=== PATIENT | female | born 2000 | race Caucasian/White ===

== ENCOUNTER 2023-10-14 18:28 | Emergency (ER) | payer MEDICAID ==
[~2023-10-14] VITALS: Ht 170.2 cm; Wt 100.0 kg
[2023-10-14 18:40] VITALS: BP 127/84; PULSE 91; RESP 16; TEMP 97.8; O2SAT 99
[2023-10-14 20:29] LABS: BILIRUBIN,URINE NEGATIVE (Neg); CLARITY,URINE SLIGHTLY CLOUDY (Clear); COLOR,URINE YELLOW (Yellow); GLUCOSE, URINE NEGATIVE (Neg); KETONES,URINE NEGATIVE (Neg); LEUKOCYTE ESTERASE ,URINE NEGATIVE (Neg); NITRITES, URINE NEGATIVE (Neg); OCCULT BLOOD,URINE NEGATIVE (Neg); PROTEIN,URINE NEGATIVE (Neg); URINE HCG NEGATIVE (NEG); UROBILINOGEN,URINE 0.2 E.U/dL (0.2-1.0)
[2023-10-14 20:30] LABS: BASOPHILS # (AUTO) 0.1 X10'3 (0-0.2); BASOPHILS % (AUTO) 0.7 % (0-1); EOSINOPHILS # (AUTO) 0.1 X10'3 (0-0.9); HEMATOCRIT 43.1 % (35.0-45.0); HEMOGLOBIN 14.5 g/dl (12.0-16.0); LYMPHOCYTES % (AUTO) 30.8 % (21-51); MEAN CORPUSCULAR HEMOGLOBIN 28.3 PG (27.0-31.0); MEAN CORPUSCULAR HGB CONC 33.6 g/dL (33.0-36.5); MEAN CORPUSCULAR VOLUME 84.3 FL (78-98); MEAN PLATELET VOLUME 7.1 FL (7.4-10.4); MONOCYTES # (AUTO) 0.7 X10'3 (0-0.9); NEUTROPHILS # (AUTO) 5.9 X10'3 (1.8-7.7); NEUTROPHILS % (AUTO) 60.5 % (42-75); PLATELET COUNT 384 X10'3 (140-440); RED BLOOD COUNT 5.12 X10'6 (4.20-5.60); RED CELL DISTRIBUTION WIDTH 13.5 % (11.5-14.5); WHITE BLOOD COUNT 9.7 X10'3 (4.5-11.0)
[2023-10-14 20:33] LABS: UA COLLECTION TYPE CLN CATCH MIDSTREAM
[2023-10-14 20:41] LABS: RBC,URINE 0-2 /HPF (0-2); WBC,URINE 0-4 /HPF (0-4)
[2023-10-14 20:42] LABS: MUCUS STRANDS FEW /LPF (Neg); SQUAMOUS EPITHELIAL CELL,UR MODERATE /LPF (FEW); TRANSITIONAL EPI CELLS,URINE FEW /HPF
[2023-10-14] MEDS ORDERED: MECL-302 PO (20:46)
[2023-10-14 20:47] LABS: ALANINE AMINOTRANSFERASE 22 U/L (12-78); ALBUMIN 4.3 G/DL (3.4-5.0); ALBUMIN/GLOBULIN RATIO 1.2 (1.1-1.5); ALKALINE PHOSPHATASE 116 IU/L (20-180); ANION GAP 7 (8-16); ASPARTATE AMINO TRANSFERASE 10 U/L (10-37); BILIRUBIN,TOTAL 0.6 MG/DL (0.1-1.0); BLOOD UREA NITROGEN 9 MG/DL (7-18); BUN/CREATININE RATIO 13.4 (10.0-20.0); CALCIUM 9.1 MG/DL (8.5-10.1); CHLORIDE 103 MMOL/L (99-107); CREATININE 0.67 MG/DL (0.40-0.90); GLUCOSE 92 MG/DL (70-104); POTASSIUM 3.9 MMOL/L (3.5-5.1); SODIUM 138 MMOL/L (135-145); TOTAL CARBON DIOXIDE 27.6 MMOL/L (24-32); eCRCL 130 ML/MIN; eGFR > 90 ML/MIN
[2023-10-14 20:51] LABS: AMORPHOUS PHOSPHATES 1+; BACTERIA,URINE FEW /HPF (Neg)
== END 2023-10-14 21:07 | disposition home or self-care (01) ==
LOC: ER 18:30
DX: R42 Dizziness and giddiness (principal)
CPT/HCPCS: 36415; 80053; 81001; 81025; 85025; 99283

== ENCOUNTER 2025-05-08 01:03 | Emergency (ER) | payer MEDICAID ==
[~2025-05-08] VITALS: Ht 170.2 cm; Wt 111.4 kg
[~2025-05-08 01:03] MED LIST: MECL-302 PO
[2025-05-08 01:07] VITALS: BP 126/81; PULSE 86; TEMP 97.7; O2SAT 99
[2025-05-08 01:32] LABS: LEUKOCYTE ESTERASE ,URINE NEGATIVE (Neg); NITRITES, URINE NEGATIVE (Neg); OCCULT BLOOD,URINE TRACE-INTACT (Neg)
[2025-05-08 01:33] LABS: UA COLLECTION TYPE CLN CATCH MIDSTREAM
[2025-05-08 01:35] VITALS: RESP 15
[2025-05-08 01:56] LABS: HCG SERUM QL NEGATIVE; MEAN PLATELET VOLUME 7.0 FL (7.4-10.4); RED CELL DISTRIBUTION WIDTH 13.3 % (11.5-14.5)
[2025-05-08 01:59] LABS: APTT 30 SECONDS (22-32); INR 1.0 INR
--- NOTE | 2025-05-08 01:59 | Physician Documentation ---
History of Present Illness General Chief Complaint: Vaginal Bleeding Stated Complaint: VAGINAL BLEEDING Time Seen by MD: 01:19 Mode of Arrival: POV History of Present Illness Initial Comments This is a 24-year-old female with no significant past medical history who presents for evaluation of three weeks of consistent vaginal bleeding similar to menses. She states that this bleeding began without any obvious trigger, trauma provocation. She actually had her period a week prior. This never happened in the past, she does not have history of irregular menstrual bleeding. No palliating or aggravating factors. She has been evaluated at [facility] four days ago, she has a received blood work and ultrasound, and was discharged after being told that everything was okay. She reports crampy abdominal pain in her lower abdomen as well as feeling dizzy. She essentially is here for a 2nd opinion. She does have OBGYN and sees Dr. Murphy at [facility]. She has not scheduled follow-up with a her OBGYN. Denies chest pain or difficulty breathing. She uses patch breast controlled at has been in place for three months. She denies any concerns for tobacco, alcohol or illicit substances use Medication Reconciliation Allergies: Coded Allergies: No Known Allergies (Unverified , 05/08/25) Scheduled Meclizine HCl (Meclizine HCl), 1 TAB PO TID PRN Review of Systems ROS 10 point review of systems was performed and unless noted above in HPI is negative for acute process/complaint. Physical Exam Physical Exam Vital Signs: Temperature: 97.7, Source: Temporal, Heart Rate: 86, Respiratory Rate: 15, BP: 126/81, Pulse Oximetry: 99, Weight: 111.400 Physical Exam GENERAL: Awake, alert, oriented, GCS 15, no apparent distress, pale appearing, answers questions, follows commands appropriately. Examined in bed 15. Accompanied by significant other HEENT: Atraumatic, normocephalic, pupils equal, extraocular muscles intact, sclerae anicteric, mucus membranes moist, oropharynx is clear, no stridor. NECK: supple, full active range of motion, trachea midline, no thyromegaly, no lymphadenopathy, no JVD. CARDIOVASCULAR: regular rate/rhythm, no murmurs/gallops/rubs, Pulses are 2+ in all extremities and symmetric. Capillary refill less than 2 seconds. PULMONARY: Nonlabored, good air movement ,no respiratory distress, speaking in full sentences, clear to auscultation bilaterally, no wheezing, no ronchi, no rales, no accessory muscle use. GASTROINTESTINAL: Soft, non-tender, non-distended, normal active bowel sounds, no organomegaly, no pulsatile masses, no CVA tenderness. NEUROLOGIC: Lucid with normal mental status. Normal facial symmetry. Moves all extremities symmetrically and with purpose. No truncal ataxia. Speech is fluid without evidence of dysarthria or aphasia, no focal deficits appreciated. MUSCULOSKELETAL: There is full range of motion of all extremities. There is no joint pain or joint swelling or joint erythema. There is no muscle pain or ten derness or swelling. EXTREMITIES: warm, well-perfused, no cyanosis, no clubbing, no edema, no acute deformities. Skin: warm, dry, no rashes or lesions, no jaundice, no petechiae orpurpura. No ecchymosis. PSYCHIATRIC: Normal affect, normal insight, normal concentration. Focused exam: [] Progress Results/Orders Results/Orders Orders - OSKAR SOMMER DO Ct Abdomen Pelvis (05/08/25 01:19) Estradiol (05/08/25 01:57) Progesterone (05/08/25 01:57) Fsh, Serum (05/08/25 01:57) Luteinizing Hormone (05/08/25 01:57) Drug Screen, Urine (05/08/25 02:22) Completed Orders - OSKAR SOMMER DO Cbc/Diff (05/08/25 01:19) ESR (05/08/25 01:19) Lipase (05/08/25 01:19) C-Reactive Protein (05/08/25 01:19) Pt Inr (05/08/25 01:19) PTT (05/08/25 01:19) MG (05/08/25 01:19) Hcg Serum Ql (05/08/25 01:19) Ct Abdomen Pelvis (05/08/25 01:19) CMP (05/08/25 01:19) Ua W/Microscopic, Cult If Ind (05/08/25 01:25) Vital Signs 05/08/25 05/08/25 01:07 01:35 Temp 97.7 Pulse 86 Resp 16 15 B/P (MAP) 126/81 Pulse Ox 99 Laboratory Tests Test 05/08/25 01:25 05/08/25 01:37 05/08/25 02:53 Urine Specimen Description Cln catch midstream Urine Color Yellow Urine Clarity Clear Urine pH 8.0 Urine Specific [place] 1.015 Urine Protein Negative Urine Glucose (UA) Negative Urine Ketones Negative Urine Occult Blood Trace-intact Urine Nitrite Negative Urine Bilirubin Negative Urine Urobilinogen 0.2 Urine Leukocyte Esterase Negative Urine RBC 3-10 Urine WBC None seen Urine Squamous Epithelial Cells Few Urine Bacteria Few Urine Culture Indicated Not ind Volume Urine Centrifuged 10 ml Urine Comment White Blood Count 12.2 H Red Blood Count 4.48 Hemoglobin 12.3 Hematocrit 36.8 Mean Corpuscular Volume 82.0 Mean Corpuscular Hemoglobin 27.5 Mean Corpuscular Hemoglobin Concent 33.5 Red Cell Distribution Width 13.3 Platelet Count 367 Mean Platelet Volume 7.0 L Neutrophils (%) (Auto) 68.1 Lymphocytes (%) (Auto) 23.9 Monocytes (%) (Auto) 6.4 Eosinophils (%) (Auto) 1.1 Basophils (%) (Auto) 0.5 Neutrophils # (Auto) 8.3 H Lymphocytes # (Auto) 2.9 Monocytes # (Auto) 0.8 Eosinophils # (Auto) 0.1 Basophils # (Auto) 0.1 CBC Comment Erythrocyte Sedimentation Rate 10 Prothrombin Time 9.8 INR International Normalized Ratio 1.0 Activated Partial Thromboplast Time 30 Coagulation Comments Sodium Level 139 Potassium Level 3.5 Chloride Level 104 Carbon Dioxide Level 26.6 Anion Gap 8 Blood Urea Nitrogen 9 Creatinine 0.65 Estimated GFR/1.73 m2 > 90 BUN/Creatinine Ratio 13.8 Glucose Level 112 H Calcium Level 8.8 Magnesium Level 1.9 Total Bilirubin 0.3 Aspartate Amino Transf (AST/SGOT) 10 Alanine Aminotransferase (ALT/SGPT) 14 Alkaline Phosphatase 82 C-Reactive Protein 0.79 H Total Protein 7.5 Albumin 3.7 Globulin 3.8 Albumin/Globulin Ratio 1.0 L Lipase 47 Human Chorionic Gonadotropin, Qual Negative Chemistry Comments EKG/XRAY/CT/US/VASC/MRI CT : Impression [facility] [address] [facility], [facility] [id number] CAT SCAN Patient: GRICELDA JENNINGS Medical Record: [id number] [facility] : 2000, Age: 24 Sex: Female Location: ER Patient Status: [facility] ER Service Date/Time: 05/08/25118 Ordering Physician: OSKAR SOMMER DO Exam: CT ABDOMEN PELVIS Exam: CT CT ABDOMEN PELVIS W/ IV CONTRAST History: Lower abdominal pain COMPARISON: None Technique: Multidetector spiral CT of the abdomen and pelvis was performed from lung bases to pubic symphysis. Intravenous contrast was administered during this examination. Portal venous imaging was obtained. Axial, coronal and sagittal multiplanar reformats were performed by the technologist on a separate workstation. Radiation Dose : 1. Abdomen/Pelvis: CTDIvol 33.6 mGy, DLP 1790.75 mGy*cm. CONTRAST: Type of contrast: Omnipaque 350 Contrast injected: 100 ml Findings: Lung Bases: No acute or significant lung base finding. Normal heart size. No pleural or pericardial effusion. Liver: The liver is normal in size. No focal lesions. Normal hepatic vascular enhancement. Gallbladder and Biliary Tree: Unremarkable Spleen: Unremarkable Pancreas: The pancreas is normal in appearance without focal lesions or abnormal enhancement. Adrenal Glands: Unremarkable Kidneys: No hydronephrosis. Bladder: Unremarkable Bowel: The stomach is grossly normal in appearance. Small bowel and colon are normal in caliber and distribution. Normal appendix is visualized in the right lower quadrant without findings of appendicitis. Ascites: Absent Lymphadenopathy: No mesenteric, retroperitoneal or periportal lymphadenopathy. Abdominal Wall and Mesentery: Unremarkable. Vasculature: The visualized abdominal aorta is normal in size and caliber. Abdominal and pelvic vessels demonstrate normal enhancement. Pelvic Organs: Unremarkable Musculoskeletal: No aggressive focal bony lesions, acute fractures or dislocation. IMPRESSION: No acute abdominal or pelvic finding. Radiation optimization: All CT scans at this facility use at least one of these dose optimization techniques: automated exposure control mA and/or kV adjustment per patient size (includes targeted exams where dose is matched to clinical indication) or iterative reconstruction. Electronically Signed by:VASYL MONTANEZ MD Date & Time: 05/08/25256 Dictated by: VASYL MONTANEZ MD Dictation date and time: 05/08/25256 Primary Care Provider: NO PRIMARY CARE PROVIDER cc: OSKAR SOMMER DO ~ Medical Decision Making Additional information obtaine: old records, family Findings Facility Status: ED Holds, RME process The plan was discussed with the patient, who demonstrates clear understanding of the plan and is in agreement with the plan unless otherwise noted in the chart. All questions have been answered, all concerns were addressed unless otherwise documented. I was available throughout their ED stay for frequent reassessment and questions. Differential Diagnoses (considered and possible or likely): [Dysfunctional vaginal bleeding, less likely miscarriage, less likely ectopic . Hormonal dysregulation had also been considered. Unlikely to be urine neoplasm.] ??Differential Diagnoses (considered and unlikely, not requiring evaluation currently): [No evidence of trauma] MDM Data Please see [facility] for the following: Independent Historians and external Records Review. Historian: [Patient] Independent Historians: ?[Record review] Medication Management: [Reviewed medication list] Social History and determinants: [Reviewed] Please see the body of the note for the following: Any independent interpretations of ECG, imaging studies. All vitals signs/haemodynamics, ordered tests were independently reviewed and interpreted by myself. Nursing triage complaint and vitals reviewed, additional nursing notes were re viewed as available and I agree unless otherwise noted or documented in contradiction in the chart Vital Signs: Independently reviewed Labs: Independently interpreted Imaging: Independently interpreted Old Medical Records: Independently reviewed, see [facility] for relevant summary and information Pulse Oximetry: [99%] interpreted as [normal on room air] by me [Loan Inspector: [Regular Rate, Regular rhythm, no ectopy, NSR] reviewed and interpreted by me] Additionally notably showing: [Hemodynamics reviewed. Young lady is not febrile, not tachycardic, no evidence of hypotension, no evidence of narrow pulse pressure. No evidence of respiratory distress. CBC shows minimal leukocytosis, most likely reactive. 12.2. Hemoglobin is normal, not requiring transfusion. Platelets are also normal. Only 68% neutrophils. ESR is normal. Coagulation panel is unremarkable, no evidence of coagulopathy. Chemistry shows normal electrolytes, normal renal function. Glucose elevated in the dietary arrange. CRP is slightly elevated. Lipase is normal. She is not . UA is nondiagnostic for UTI. Estradiol, FSH, LH, progesterone a pending inpatient was informed that she needs an outpatient follow-up to obtain records and get this data points to present to her OBGYN. Advanced imaging was obtained showing no acute intra-abdominal process.] Tests considered but not ordered include: [Ultrasound has been considerably, however it already has been done four days ago at [facility]. I was able to see the results showing normal ovaries with a bilateral blood flow, normal uterus without masses, endometrial stripe of 3 mm.] Social Determinants of Health Impact: Patient was evaluated in [facility] [place] to healthcare due to below par ratio of patient to medical providers. [] Comorbid Conditions Impacting Present Evaluation and Care/Treatment: [None] Management Discussions with other Healthcare Providers: [None] Treatment and Disposition Medication Management (Given or considered): []. See EMR for details Consideration for Hospitalization/Escalation/Deescalation of Care: Admission for observation has been considered, [however the patient is able to tolerate p.o., their symptoms are controlled, they are able to rely on oral medications, and their chief complaint/diagnosis can be managed on outpatient basis.] ?ED Course:?[No clinical deterioration. No anemia requiring transfusion.] ?Shared decision making:?[Patient is hemodynamically stable for discharge home with follow with their primary care provider. [ ] Specific and cautious return precautions provided and discussed with full understanding. Any incidental findings were also discussed and follow up recommendations given. [] All questions answered. Patient/family were able to verbalize back return precautions. Patient/family agree to plan. Copies of imaging and laboratory studies were provided.] Code status:?FULL Please see the full Electronic Medical Record for full details of nursing documentation, medications list, other records of complete past medical history and conditions, vital signs, laboratory studies, and any radiologic study interp retations by radiologists. Portions of this note were completed using [employer] dictation software and as a result there may exist minor errors in spelling. I have reviewed elements of past family and social history and agree as included in note. Differential Diagnosis See body of main note for differential diagnosis Departure Disposition: HOME / SELF CARE / HOMELESS Impression: Primary Impression: Dysfunctional uterine bleeding Condition: Stable Discharge Instructions: Dysfunctional Uterine Bleeding Additional Instructions: Today you were evaluated for three weeks of dysfunctional uterine bleeding. You already had an ultrasound done at [facility], therefore we did not repeated. The ultrasound was normal, shallow with a normal size and normal blood flow to the ovaries, no ovarian cyst, normal uterus without masses. Labo ratory studies today were repeated and there is no evidence of anemia requiring transfusion. This is a matter of fact, your hemoglobin is within normal range. The rest of your laboratory studies were unremarkable. There is no evidence of urinary tract infection. There is no obvious explanation to your lower abdominal/pelvic cramping, but it is most likely related to the dysfunctional uterine bleeding. The CT showed no acute intra-abdominal process, no tumors, no chronic pathology. Hormonal studies were obtained, however they are a send out laboratory studies. It takes a proximally three business days for them to result. Please contact records department or go on the portal to view the results for estrogen, progesterone, follicle-stimulating hormone, and luteinizing hormone. Discuss the results for these labs with the your OBGYN provider. They will need to know the timing of these labs with a respect to the 1st day of your last menstrual period. Most likely you will be able to obtain this information from your period tracker jayesh. The results of your CT scan below. [place] [address] CAT SCAN Patient: GRICELDA JENNINGS Medical Record: [id number] [facility] : 2000, Age: 24 Sex: Female Location: ER Patient Status: REG ER Service Date/Time: 05/08/25118 Ordering Physician: OSKAR SOMMER DO Exam: CT ABDOMEN PELVIS Exam: CT CT ABDOMEN PELVIS W/ IV CONTRAST History: Lower abdominal pain COMPARISON: None Technique: Multidetector spiral CT of the abdomen and pelvis was performed from lung bases to pubic symphysis. Intravenous contrast was administered during this examination. Portal venous imaging was obtained. Axial, coronal and sagittal multiplanar reformats were performed by the technologist on a separate workstation. Radiation Dose : 1. Abdomen/Pelvis: CTDIvol 33.6 mGy, DLP 1790.75 mGy*cm. CONTRAST: Type of contrast: Omnipaque 350 Contrast injected: 100 ml Findings: Lung Bases: No acute or significant lung base finding. Normal heart size. No pleural or pericardial effusion. Liver: The liver is normal in size. No focal lesions. Normal hepatic vascular enhancement. Gallbladder and Biliary Tree: Unremarkable Spleen: Unremarkable Pancreas: The pancreas is normal in appearance without focal lesions or abnormal enhancement. Adrenal Glands: Unremarkable Kidneys: No hydronephrosis. Bladder: Unremarkable Bowel: The stomach is grossly normal in appearance. Small bowel and colon are normal in caliber and distribution. Normal appendix is visualized in the right lower quadrant without findings of appendicitis. Ascites: Absent Lymphadenopathy: No mesenteric, retroperitoneal or periportal lymphadenopathy. Abdominal Wall and Mesentery: Unremarkable. Vasculature: The visualized abdominal aorta is normal in size and caliber. Abdominal and pelvic vessels demonstrate normal enhancement. Pelvic Organs: Unremarkable Musculoskeletal: No aggressive focal bony lesions, acute fractures or disl ocation. IMPRESSION: No acute abdominal or pelvic finding. Radiation optimization: All CT scans at this facility use at least one of these dose optimization techniques: automated exposure control mA and/or kV adjustment per patient size (includes targeted exams where dose is matched to clinical indication) or iterative reconstruction. Electronically Signed by:VASYL MONTANEZ MD Date & Time: 05/08/25256 Dictated by: VASYL MONTANEZ MD Dictation date and time: 05/08/25256 Primary Care Provider: NO PRIMARY CARE PROVIDER cc: OSKAR SOMMER DO ~ Referrals: NO PRIMARY CARE PROVIDER (PCP) Education Educated: Patient Educated regarding: diagnosis, treatment, prognosis, need for follow up Signature Scribe Signature: No scribe Attestation: Date: May 08, 2025 Time: 01:59 This note accurately reflects clinical decisions, work performed by myself, DO KEMAL Laird NICHOLAS M DO May 08, 2025 01:59
[2025-05-08 02:04] LABS: CREATININE 0.65 MG/DL (0.40-0.90); TOTAL CARBON DIOXIDE 26.6 MMOL/L (24-32); eCRCL 132 ML/MIN; eGFR > 90 ML/MIN
[2025-05-08 02:08] LABS: SQUAMOUS EPITHELIAL CELL,UR FEW /LPF (FEW)
--- NOTE | 2025-05-08 03:00 | RADIOLOGY REPORT ---
Exam: CT CT ABDOMEN PELVIS W/ IV CONTRAST History: Lower abdominal pain COMPARISON: None Technique: Multidetector spiral CT of the abdomen and pelvis was performed from lung bases to pubic symphysis. Intravenous contrast was administered during this examination. Portal venous imaging was obtained. Axial, coronal and sagittal multiplanar reformats were performed by the technologist on a separate workstation. Radiation Dose : 1. Abdomen/Pelvis: CTDIvol 33.6 mGy, DLP 1790.75 mGy*cm. CONTRAST: Type of contrast: Omnipaque 350 Contrast injected: 100 ml Findings: Lung Bases: No acute or significant lung base finding. Normal heart size. No pleural or pericardial effusion. Liver: The liver is normal in size. No focal lesions. Normal hepatic vascular enhancement. Gallbladder and Biliary Tree: Unremarkable Spleen: Unremarkable Pancreas: The pancreas is normal in appearance without focal lesions or abnormal enhancement. Adrenal Glands: Unremarkable Kidneys: No hydronephrosis. Bladder: Unremarkable Bowel: The stomach is grossly normal in appearance. Small bowel and colon are normal in caliber and distribution. Normal appendix is visualized in the right lower quadrant without findings of appendicitis. Ascites: Absent Lymphadenopathy: No mesenteric, retroperitoneal or periportal lymphadenopathy. Abdominal Wall and Mesentery: Unremarkable. Vasculature: The visualized abdominal aorta is normal in size and caliber. Abdominal and pelvic vessels demonstrate normal enhancement. Pelvic Organs: Unremarkable Musculoskeletal: No aggressive focal bony lesions, acute fractures or dislocation. IMPRESSION: No acute abdominal or pelvic finding. Radiation optimization: All CT scans at this facility use at least one of these dose optimization techniques: automated exposure control mA and/or kV adjustment per patient size (includes targeted exams where dose is matched to clinical indication) or iterative reconstruction.
[2025-05-10 09:28] LABS: ESTRADIOL 9.6 pg/mL (.); FSH, SERUM 2.1 mIU/mL (.); LUTEINIZING HORMONE 2.6 mIU/mL (.); PROGESTERONE 0.1 ng/mL (.)
== END 2025-05-08 04:10 | disposition home or self-care (01) ==
LOC: ER 01:04
DX: N93.8 Other specified abnormal uterine and vaginal bleeding (principal); Z79.899 Other long term (current) drug therapy
CPT/HCPCS: 36415; 74177; 80053; 81001; 82670; 83001; 83002; 83690; 83735; 84144; 84703; 85025; 85610; 85651; 85730; 86140; 99285; Q9967